=== PATIENT | male | born 1960 | race Caucasian/White ===

== ENCOUNTER 2016-07-17 11:18 | Emergency (ER) | payer MEDICARE ==
--- NOTE | ~2016-07-17 | CR169 ---
[facility] A Service of [facility] & [facility] / [facility] RADIOLOGY TEXT RESULTS PATIENT: KISHOR JOYNER LOCATION: [facility] : 56 UNIT #: [id number] AGE: [address]: Kermit Barrow DO SEX: M ORDER DR: [id number] [facility] [address] [place], [place] [address] [id number] E MR#: [id number] Acc #: [id number] NAME: KISHOR JOYNER. : 1960 SEX: M STUDY DATE/TIME: 07/17/2016 13:29 UNIT: [facility] ROOM: STUDY DESCRIPTION: CR Knee 2 Views Lt Attending Physician: Kermit Barrow D.O. Ordering Physician: Kermit Barrow D.O. Primary Care Physician: Ger Knight M.D. MEDICAL IMAGING REPORT This report is preliminary unless electronic signature is present EXAM Left knee 2 views 07/17/2016 1329 hours CLINICAL HISTORY 55-year-old man with a 2-day history of knee pain after falling off a deck 2 days ago. COMPARISON None. FINDINGS AP and lateral views demonstrate no joint effusion or fracture. There is no dislocation. Surgical clips are noted posteromedially. IMPRESSION No joint effusion, fracture, or significant degenerative change. Dictated by... Dinora Avilez M.D. THIS IS AN ELECTRONICALLY VERIFIED REPORT Dinora Avilez M.D. at 07/17/2016 7:08 PM RACHELLE/edy TD: 07/17/2016 15:16 JOB #: [id number] MEDICAL IMAGING REPORT Page 1 of 1 COPY
--- NOTE | ~2016-07-17 | CR20 ---
[facility] A Service of [facility] & [facility] RADIOLOGY TEXT RESULTS PATIENT: KISHOR JOYNER LOCATION: [facility] : 56 UNIT #: [id number] AGE: [address]: Kermit Barrow DO SEX: M ORDER DR: [id number] [facility] [address] [place], [place] [address] [id number] E MR#: [id number] Acc #: [id number] NAME: KISHOR JOYNER : 1960 SEX: M STUDY DATE/TIME: 07/17/2016 11:49 UNIT: [facility] ROOM: STUDY DESCRIPTION: CR Ankle Min 3 Views Lt Attending Physician: Kermit Barrow D.O. Ordering Physician: Ed Andrey Nickerson M.D. Primary Care Physician: Ger Knight M.D. MEDICAL IMAGING REPORT This report is preliminary unless electronic signature is present EXAM Left ankle, 3 views. HISTORY Ankle pain, swelling, bruising. Fell off his deck on 07/15/2016. FINDINGS 3 views are submitted. Exam shows a transverse fracture through the medial malleolus. It is displaced by one-quarter shaft width and slightly distracted. The lateral malleolus is intact. There is diffuse soft tissue swelling. There is ossification within the Achilles tendon insertion with degenerative cystic changes. There is some ossification at the origin of the plantaris fascia. CONCLUSION Transverse fracture through the medial malleolus. Dictated by... William Azul M.D. THIS IS AN ELECTRONICALLY VERIFIED REPORT William Azul M.D. at 07/18/2016 5:06 PM EWA/brandon TD: 07/17/2016 13:35 JOB #: [id number] MEDICAL IMAGING REPORT Page 1 of 1 COPY
== END 2016-07-17 14:18 | disposition home or self-care (01) ==
LOC: CED 11:18
DX: S82.52XA Displaced fracture of medial malleolus of left tibia, initial encounter for closed fracture (principal); E11.9 Type 2 diabetes mellitus without complications; Z79.899 Other long term (current) drug therapy; W19.XXXA Unspecified fall, initial encounter; Y92.89 Other specified places as the place of occurrence of the external cause
CPT/HCPCS: 29515; 73560; 73610; 99284